=== PATIENT | female | born 1950 | race Caucasian/White ===

== ENCOUNTER 2016-09-19 11:21 | Inpatient (IN) | payer OTHER ==
[2016-09-18 14:24] VITALS: BMI 24.2
[~2016-09-19] VITALS: Ht 157.5 cm; Wt 60.0 kg
[2016-09-19] VITALS (21 sets, daily range): BP systolic 115–185; BP diastolic 46–77; PULSE 50–70; RESP 13–22; Ht 157.5 cm; Wt 60.0 kg
[2016-09-19] MEDS: SOD CHLORIDE 0.9% 1,000 ML IV SCH ×2 (07:00→20:20)
[~2016-09-19 11:21] MED LIST: CEFAZOLIN 1 GM INJ ONE; CEFAZOLIN 2 GM/50 ML (PMX) 50 ML IVPB ONE
--- NOTE | 2016-09-19 12:33 | RADRPT ---
PROCEDURE: XR Chest AP portable CLINICAL INDICATION: Preop TECHNIQUE: An AP portable radiograph of the chest was submitted. COMPARISON: None. FINDINGS: Support Hardware: None Cardiovascular: The cardiovascular silhouette appears unremarkable. Lung Brown: The lung brown appear clear with no nodule, alveolar infiltrate, or interstitial promi nence evident. Pleural Spaces: No pneumothorax or pleural effusion is identified. Osseous Structures: Mild diffuse degenerative endplate changes are seen to the spine. Soft Tissues: The soft tissues appear unremarkable. IMPRESSION: Unremarkable portable chest. Physician Marycruz Date Time Electronically viewed and signed by Physician Marycruz on 09/19/2016 12:33 /
[2016-09-19] MEDS ORDERED: ROCURONIUM 50 MG INJ ONE (12:43)
[2016-09-19] MEDS ORDERED: PROPOFOL 20 ML ONE (12:43)
[2016-09-19] MEDS ORDERED: GLYCOPYRROLATE 0.4 MG INJ ONE (12:43)
[2016-09-19] MEDS ORDERED: MIDAZOLAM 1 MG/ML 2 ML INJ ONE (12:43)
[2016-09-19] MEDS ORDERED: NEOSTIGMINE 3 MG/3 ML SYRINGE ONE (12:43)
[2016-09-19] MEDS ORDERED: LIDOCAINE 2% (SDV) 5 ML INJ ONE (12:43)
[2016-09-19] MEDS ORDERED: SUCCINYLCHOLINE CHLORIDE 100 MG/5 ML SYG IV ONE (12:44)
[2016-09-19] MEDS ORDERED: FENTAnyl 50 MCG/ML VIAL ONE (12:44)
[2016-09-19] MEDS ORDERED: ONDANSETRON 4 MG INJ ONE (12:49)
[2016-09-19] MEDS ORDERED: DEXAMETHASONE 4 MG/ML 1 ML INJ ONE (12:50)
[2016-09-19] MEDS ORDERED: PROP20TA4 PO (12:52)
[2016-09-19] MEDS ORDERED: TAP5 PO (12:52)
[2016-09-19 12:54] LABS: ADD SCAN DIFF NO
[2016-09-19] MEDS ORDERED: MIDAZOLAM 1 MG/ML 2 ML INJ IV PRN (13:00)
[2016-09-19] MEDS ORDERED: EPHEDrine SULFATE 50 MG/5 ML SYG IV PRN (13:00)
[2016-09-19] MEDS ORDERED: LABETALOL HCL 20MG INJ IV PRN (13:00)
[2016-09-19] MEDS ORDERED: OXYCODONE/ACETAMINOPHEN (5/325) TAB PO PRN ×2 (13:00)
[2016-09-19] MEDS ORDERED: hydrALAzine 20 MG INJ IV PRN (13:00)
[2016-09-19] MEDS ORDERED: HYDROmorphONE (0.2 MG/ML) 10ML SYG IV PRN ×3 (13:00)
[2016-09-19] MEDS ORDERED: MEPERIDINE 25 MG INJ IV PRN (13:00)
[2016-09-19] MEDS ORDERED: morphine (1 MG/ML) 10ML SYRINGE IV PRN ×3 (13:00)
[2016-09-19] MEDS ORDERED: ONDANSETRON 4 MG INJ IV PRN ×2 (13:00→15:30)
[2016-09-19] MEDS ORDERED: ATROPINE 1 MG/10 ML SYRINGE IV PRN (13:00)
[2016-09-19] MEDS ORDERED: FENTAnyl 50 MCG/ML VIAL IV PRN ×2 (13:00)
[2016-09-19] MEDS ORDERED: DIPHENHYDRAMINE 50 MG INJ IV PRN (13:00)
[2016-09-19 13:06] LABS: BASOPHILS % 0.4 % (0.0-2.0); EOSINOPHILS # 0.1 10^3/ul (0.0-0.5); EOSINOPHILS % 2.8 % (0.0-7.0); HEMOGLOBIN 13.3 g/dl (12.0-16.0); LYMPHOCYTES # 1.7 10^3/ul (0.8-2.9); LYMPHOCYTES % 33.1 % (15.0-51.0); MEAN CORPUSCULAR HEMOGLOBIN 31.9 pg (29.0-33.0); MEAN CORPUSCULAR HGB CONC 33.3 g/dl (32.0-37.0); MEAN CORPUSCULAR VOLUME 95.9 fl (82.0-101.0); MEAN PLATELET VOLUME 10.1 fl (7.4-10.4); MONOCYTE # 0.4 10^3/ul (0.3-0.9); MONOCYTES % 7.5 % (0.0-11.0); NEUTROPHIL # 2.8 10^3/ul (1.6-7.5); NEUTROPHILS % 56.2 % (39.0-77.0); PLATELET COUNT 196 10^3/UL (140-415); RED BLOOD COUNT 4.17 10^6/ul (4.20-5.40); RED CELL DISTRIBUTION WIDTH 11.9 % (11.5-14.5); WHITE BLOOD COUNT 5.1 10^3/ul (4.8-10.8)
[2016-09-19 13:11] LABS: CALCIUM 9.3 mg/dl (8.4-10.2); CREATININE 0.6 mg/dl (0.44-1.00); INR 0.96; POTASSIUM 4.1 mmol/L (3.5-5.1); PROTIME 12.8 Sec (12.2-14.2)
[2016-09-19] MEDS ORDERED: morphine 2 MG INJ IV PRN (15:30)
[2016-09-19] MEDS ORDERED: ACETAMINOPHEN 1000MG/100ML IV 100 ML IVPB PRN (15:30)
--- NOTE | 2016-09-19 15:38 | OPR ---
DATE OF OPERATION: 09/19/2016 PREOPERATIVE DIAGNOSIS: Locally advanced left breast cancer. POSTOPERATIVE DIAGNOSIS: Locally advanced left breast cancer. OPERATION PERFORMED: Left modified radical mastectomy and removal of breast implants. ANESTHESIA: General. ANESTHESIOLOGIST: Joseph Qureshi MD. SURGEON: Jules Wilkerson MD ROTARY DRYER OPERATOR: Baldomero Slater MD INDICATIONS FOR PROCEDURE: The patient is an unfortunate 66-year-old female who presented with a la rge locally advanced left breast cancer with biopsy proven axillary metastasis. She underwent neoad juvant chemotherapy. She was then counseled as to the need for left modified radical mastectomy and concurrent removal of her breast implant. She consented and was scheduled for surgery. DESCRIPTION OF PROCEDURE: The patient was brought to the operating theater, placed under general en dotracheal tube anesthesia. The left breast and axillary regions were prepped and draped in usual s terile fashion. A planned elliptical incision including a significant amount of skin and the nipple areolar complex was demarcated with marking pen and carried out with 15 blade scalpel. Subcutaneou s tissue was dissected with cautery. [place] clamps were used to elevate the skin edges and ski n flaps were created sequentially with cautery, first superiorly to the clavicle, then medially to t he sternal border, inferiorly to the inframammary fold and then laterally to the latissimus dorsi mu scle was identified throughout its course. Pectoralis major muscle was incised and mastectomy took place from medial to lateral by dissecting the fascia and the breast off of the underlying muscle. At the border of the pectoralis major muscle, the pectoralis minor muscle was identified. Clavipect oral fascia was incised with blunt dissection along the chest wall. The long thoracic nerve was marcela ntified and kept out of harm's way. More superiorly, the axillary vein and thoracodorsal neurovascu lar bundle was identified and kept out of harm's way. Node bearing tissue, some of which appeared t o be enlarged was meticulously harvested using the LigaSure device. Final connective tissue attachm ents to the latissimus dorsi muscle were then transected with cautery. Specimen was oriented and se nt for permanent pathologic analysis. Dr. Wilkerson inspected the axilla. There were some residual enl arged level 2 lymph nodes that were separately resected using LigaSure device and sent separately fo r pathologic analysis. The wound was then irrigated. Minimal bleeding was controlled with cautery. Two #10 flat Matthew-Skinner drains were then brought through the left mid axillary line, one was cu t to size and laid within the axilla, the other was cut to size and laid over top of the pectoralis major muscle. Both drains were secured in place with 2-0 nylon sutures in the standard fashion. Fi nal irrigation and inspection then took place. The skin was reapproximated using towel clips and se veral deep dermal 4-0 Vicryl suture were placed in interrupted fashion and then final skin approxima tion was accomplished with skin lilo. The patient tolerated procedure well. ESTIMATED BLOOD LOSS: 30 mL. COMPLICATIONS: There were no complications. The patient was transported in stable condition to the recovery room where circumferential compressi on dressing was applied. Dictated By: JULES YE/STEPHAN Conf#: [id number] DID#: [id number]
--- NOTE | 2016-09-19 17:37 | HP ---
DATE OF ADMISSION: 09/19/2016 CHIEF COMPLAINT AND HISTORY OF PRESENT ILLNESS: The patient is a 66-year-old female with history o f hypertension, hyperthyroidism who was seen by Dr. Wilkerson as an outpatient. The patient has history of locally advanced left breast cancer with a biopsy-proven axillary metastasis. The patient under went neoadjuvant chemotherapy. The patient was brought in to hospital today and underwent left neri fied radical mastectomy by Dr. Wilkerson and also complete removal of her breast implants. The patient actually which she is breathing comfortably, no reported fever or chills. No reported vomiting. No reported dysuria or hematuria. No reported abdominal distention. The patient does have significan t postoperative pain; therefore, the patient is being admitted for further evaluation and management . PAST MEDICAL HISTORY: As stated above. SOCIAL HISTORY: No smoking, no alcohol. FAMILY HISTORY: Patient's mother had lung cancer. ALLERGIES: NONE. PHYSICAL EXAMINATION: GENERAL: The patient is conscious, awake, alert. VITAL SIGNS: Temperature 97.8, pulse 50, respirations 16, blood pressure 119/48, O2 saturation ____ % on room air. HEENT: Conjunctivae and lids normal. Oropharynx clear. NECK: Supple. No mass, no thyromegaly. LUNGS: Clear to auscultation. CARDIOVASCULAR: S1, S2 normal. No murmur. ABDOMEN: Soft, nondistended, nontender. Bowel sounds present. EXTREMITIES: No leg edema. NEUROLOGIC: The patient is awake, alert with no gross focal deficit. LABORATORY DATA: WBC 5.1, hemoglobin 13.3, platelets 196. Sodium 142, potassium 4.1, BUN 15, creat inine 0.6, glucose 109. IMPRESSION: 1. Left breast cancer status post chemotherapy and now underwent left modified radical mastectomy a nd removal of breast implants. 2. Hypertension. 3. Hyperthyroidism. PLAN: Patient admitted on medical floor. Patient will be started on clear liquid diet, which will be advanced as tolerated. The patient will be given IV fluids, Tylenol, Percocet and IV morphine fo r pain control, depending on the severity. Will reduce the dose of ____to 20 mg b.i.d. as the patie nt's heart rate is only 50. Will continue methimazole 5 mg t.i.d. If the patient continues to do w ell, she will be discharged home. Dictated By: LINDSAY THIBODEAUX/STEPHAN Conf#: [id number] DID#: [id number]
[2016-09-19] MEDS: D5W-0.45 NACL + KCL 20 MEQ 1,000 ML IV SCH (18:32)
[2016-09-19] MEDS: METHIMAZOLE 5 MG TAB PO SCH (20:45)
[2016-09-19] MEDS: PROPRANOLOL 20 MG TAB PO SCH (20:48)
[2016-09-20 00:27] VITALS: BP 145/65; PULSE 63; RESP 20
[2016-09-20] MEDS: D5W-0.45 NACL + KCL 20 MEQ 1,000 ML IV SCH ×2 (03:11→07:24)
[2016-09-20 08:31] VITALS: BP 148/64; RESP 18
[2016-09-20] MEDS: METHIMAZOLE 5 MG TAB PO SCH ×2 (08:38→12:45)
[2016-09-20] MEDS: PROPRANOLOL 20 MG TAB PO SCH (08:39)
[2016-09-20] MEDS: SOD CHLORIDE 0.9% 1,000 ML IV SCH (09:40)
[2016-09-20] MEDS ORDERED: HYDROCODONE/APAP (5/325) TAB PO PRN (10:00)
--- NOTE | 2016-09-20 10:14 | PN ---
DATE: 09/20/2016 Postop day #1 status post left modified radical mastectomy with axillary dissection SUBJECTIVE: No complaint. OBJECTIVE: VITAL SIGNS: Temperature 97.3, heart rate 60, respirations 18, blood pressure 148/64, oxygen satura tion 94%. BREASTS: Matthew-Skinner drains have drained totally about 130 mL of bloody drainage since the operat ion. Dressing is intact. Moves left upper extremity completely. ASSESSMENT AND PLAN: Status post left modified radical mastectomy and axillary dissection for local ly invasive cancer of breast, status post chemotherapy. The patient is stable. She can be dischar ged home with [address] in [address] The nurse is going to teach the patient the care of t he Matthew-Skinner tubes and recording of the Matthew-Skinner tubes at home. The patient is to call Dr. Wilkerson' office and make an appointment for followup. Medical service to discharge the patient after evaluating for other medical problems. Dictated By: JERSON GARNER MD PS/NTS Conf#: [id number] DID#: [id number]
[2016-09-20] MEDS ORDERED: HYDR-3498 PO (18:04)
--- NOTE | 2016-09-22 11:57 | RADRPT ---
Vent Rate: 53 bpm RR Interval: 0 msec SD Interval: 150 msec QRS Duration: 74 msec QT Interval: 466 msec QTC Interval: 437 msec P-R-T Collins: 59 - 62 - 74 degrees Sinus bradycardia Otherwise normal ECG No previous tracing available for comparison Electronically Signed By: Hector Love [id number]
--- NOTE | 2016-09-22 21:31 | DS ---
DATE OF ADMISSION: 09/19/2016 DATE OF DISCHARGE: 09/20/2016 FINAL DIAGNOSES: 1. Left breast cancer, status post chemotherapy and status post left modified radical mastectomy an d removal of breast implant. 2. Hypertension. 3. Hyperthyroidism. BRIEF HISTORY: The patient is a 66-year-old female with history of locally advanced left breast can cer with biopsy-proven axillary metastasis. The patient underwent neoadjuvant chemotherapy, and the patient was brought to the hospital and underwent left modified radical mastectomy by Dr. Wilkerson and complete removal of breast implant. The patient did have significant postoperative pain and theref ore is being admitted for further evaluation and management. HOSPITAL COURSE: The patient was given IV Tylenol and Percocet and IV morphine for pain control. T he patient was continued on methimazole for hyperthyroidism. The patient's condition gradually impr geremias, and pain was well controlled. The patient was able to tolerate diet. Denied any nausea, vomi ting. The patient was discharged home. Condition on discharge hemodynamically stable. Discharge i nstruction was given to the patient and patient's daughter who was at the bedside. ACTIVITY: As patient tolerates. DIET: Two gram sodium, low-fat, low-cholesterol diet. MEDICATION ON DISCHARGE: The patient is given prescription for [place] p.r.n. for pain. The patient is to continue on: 1. Methimazole. 2. Propranolol. The patient is instructed to follow up with Dr. Wilkerson in 3 to 7 days. Interdisciplinary plan of care was established for this patient. Plan of care was discussed with Dr Faheem Justin. Dictated By: VALDO KITCHEN HELPER MARBLE FINISHER for LINDSAY JUSTIN MD SR/NTS Conf#: [id number] DID#: [id number]
== END 2016-09-20 19:08 | disposition home or self-care (01) | DRG 580 ==
LOC: SDS 11:21 → REC 15:52 → PP2 17:31
PROVIDERS: ADMIT Surgery Surgical Oncology; ATTEND Surgery Surgical Oncology
PROC: 07B60ZX Excision of Left Axillary Lymphatic, Open Approach, Diagnostic (ICD-10-PCS; 2016-09-19)
PROC: 0HPU0JZ Removal of Synthetic Substitute from Left Breast, Open Approach (ICD-10-PCS; 2016-09-19)
PROC: 0HTU0ZZ Resection of Left Breast, Open Approach (ICD-10-PCS; principal; 2016-09-19 14:00)
DX: C50.912 Malignant neoplasm of unspecified site of left female breast (principal); C77.3 Secondary and unspecified malignant neoplasm of axilla and upper limb lymph nodes; I10 Essential (primary) hypertension; G89.18 Other acute postprocedural pain; E05.90 Thyrotoxicosis, unspecified without thyrotoxic crisis or storm
CPT/HCPCS: 71010; 80048; 85025; 85610; 85730; 88305; 88307; 88341; 88342; 93005; J0330; J0360; J0690; J1100; J2175; J2250; J2270; J2405; J2710; J3010; J3480; J7030

== ENCOUNTER 2018-02-27 11:19 | Day surgery (SDC) | END 2018-02-27 18:25 | disposition home or self-care (01) ==